=== PATIENT | male | born 1995 | race Two or more races ===

== ENCOUNTER 2020-10-02 19:30 | Outpatient (CLI) | payer SELFPAY | END 2020-10-02 19:31 | disposition home or self-care (01) | LOC: COV 19:30 | PROVIDERS: ATTEND Family Medicine | DX: Z20.822 Contact with and (suspected) exposure to COVID-19 (principal) ==

== ENCOUNTER 2023-05-09 17:00 | Outpatient (CLI) | payer OTHER | END 2023-05-09 17:15 | disposition home or self-care (01) | LOC: LAB.N 17:00 | PROVIDERS: ATTEND Family Medicine | DX: B99.9 Unspecified infectious disease (principal); B95.8 Unspecified staphylococcus as the cause of diseases classified elsewhere | CPT/HCPCS: 87070; 87205 ==